=== PATIENT | male | born 1990 | race African-American/Black ===

== ENCOUNTER 2019-07-15 04:29 | Emergency (ER) | payer OTHER ==
[~2019-07-15] VITALS: Ht 177.8 cm; Wt 87.7 kg
[2019-07-15 04:39] VITALS: BP 141/77
== END 2019-07-15 06:34 | disposition home or self-care (01) ==
LOC: M ED 04:29
DX: T33.831A Superficial frostbite of right toe(s), initial encounter (principal); T33.832A Superficial frostbite of left toe(s), initial encounter; X31.XXXA Exposure to excessive natural cold, initial encounter; Y92.138 Other place on military base as the place of occurrence of the external cause; Y99.1 Military activity; Y93.01 Activity, walking, marching and hiking; F17.218 Nicotine dependence, cigarettes, with other nicotine-induced disorders